=== PATIENT | female | born 1945 | race Caucasian/White ===

== ENCOUNTER 2023-11-03 06:15 | Day surgery (SDC) | payer MEDICARE, BC ==
[2023-11-02 09:19] LABS: BASOPHILS # (AUTO) 0.1 X10'3 (0-0.2); BASOPHILS % (AUTO) 1.5 % (0-1); EOSINOPHILS # (AUTO) 0.3 X10'3 (0-0.9); EOSINOPHILS % (AUTO) 4.9 % (0-6); HEMATOCRIT 46.6 % (35.0-45.0); HEMOGLOBIN 15.5 g/dl (12.0-16.0); LYMPHOCYTES # (AUTO) 1.6 X10'3 (1.1-4.8); LYMPHOCYTES % (AUTO) 25.8 % (21-51); MEAN CORPUSCULAR HGB CONC 33.3 g/dL (33.0-36.5); MEAN CORPUSCULAR VOLUME 90.1 FL (78-98); MEAN PLATELET VOLUME 8.6 FL (7.4-10.4); MONOCYTES # (AUTO) 0.5 X10'3 (0-0.9); MONOCYTES % (AUTO) 8.1 % (2-12); NEUTROPHILS # (AUTO) 3.8 X10'3 (1.8-7.7); NEUTROPHILS % (AUTO) 59.7 % (42-75); PLATELET COUNT 233 X10'3 (140-440); RED BLOOD COUNT 5.17 X10'6 (4.20-5.60); RED CELL DISTRIBUTION WIDTH 13.5 % (11.5-14.5); WHITE BLOOD COUNT 6.3 X10'3 (4.5-11.0)
[2023-11-02 09:52] LABS: ALBUMIN 3.6 G/DL (3.4-5.0); ANION GAP 7 (8-16); APTT 24 SECONDS (22-32); BLOOD UREA NITROGEN 31 MG/DL (7-18); BUN/CREATININE RATIO 23.5 (10.0-20.0); CALCIUM 9.8 MG/DL (8.5-10.1); CHLORIDE 103 MMOL/L (99-107); CREATININE 1.32 MG/DL (0.40-0.90); GLUCOSE 98 MG/DL (70-104); POTASSIUM 4.7 MMOL/L (3.5-5.1); PROTHROMBIN TIME 10.3 SECONDS (9.0-12.0); SODIUM 140 MMOL/L (135-145); TOTAL CARBON DIOXIDE 30.2 MMOL/L (24-32); eGFR 39 ML/MIN
[~2023-11-03] VITALS: Ht 162.6 cm; Wt 81.4 kg
[2023-11-03] VITALS (19 sets, daily range): BP systolic 127–162; BP diastolic 70–98; PULSE 59–64; RESP 13–21; TEMP 97.2; O2SAT 93–99
[~2023-11-03 06:15] MED LIST: AMLO5TAB16 PO; BIOT1CAP3 PO; CELE-127 PO; CIDE300T3 PO; FLUO40CA PO; LISI40TA13 PO; MULT-1085 PO; PRAM0.5T12 PO; PRE5T PO; ROSU5TAB43 PO; [UNRECOGNIZED DRUG - OTHER] INH; cefazolin 2gm/D5W 100mL 100 ML IV ONE; mag PO
[2023-11-03] MEDS ORDERED: ASPI-1264 PO (06:37)
[2023-11-03] MEDS ORDERED: CARV3.123 PO (06:38)
[2023-11-03] MEDS ORDERED: SPIR25TA5 PO (06:38)
[2023-11-03] MEDS ORDERED: SACU1TAB7 PO (06:39)
[2023-11-03] MEDS ORDERED: PANT40TA54 PO (06:39)
[2023-11-03] MEDS ORDERED: DAPA10TA PO (06:40)
[2023-11-03] MEDS ORDERED: normal saline 1,000 ML IV SCH (06:45)
[2023-11-03] MEDS ORDERED: LIDOcaine 1% W/epiNEPHrine 1:100,000 20ml vial ONE ×2 (07:29→08:51)
[2023-11-03] MEDS ORDERED: ceFAZolin 1000mg inj ONE (07:29)
[2023-11-03] MEDS ORDERED: fentaNYL/PF 50MCG/1 ML 2ML syringe ONE ×2 (07:29→09:20)
[2023-11-03] MEDS ORDERED: midazolam 1 mg/ML 2ml injection ONE (07:29)
[2023-11-03] MEDS ORDERED: diphenhydrAMINE 50 mg/ml inj ONE (09:13)
[2023-11-03] MEDS ORDERED: HYDROcodone/acetaminophen 5mg/325mg tablet PO PRN (10:05)
[2023-11-03] MEDS ORDERED: HYDROcodone/acetaminophen 10/325mg tab PO PRN (10:05)
[2023-11-03] MEDS: vancomycin/NS 1 GM ADD-VANTAGE 250 ML X 1 DOSE IV ONE (11:20)
== END 2023-11-03 16:00 | disposition home or self-care (01) ==
LOC: SSTAY O 06:15
PROVIDERS: ATTEND Internal Medicine Cardiovascular Disease
DX: I49.5 Sick sinus syndrome (principal); I13.0 Hypertensive heart and chronic kidney disease with heart failure and stage 1 through stage 4 chronic kidney disease, or unspecified chronic kidney disease; N18.30 Chronic kidney disease, stage 3 unspecified; I50.22 Chronic systolic (congestive) heart failure; I25.119 Atherosclerotic heart disease of native coronary artery with unspecified angina pectoris; I48.91 Unspecified atrial fibrillation; E78.5 Hyperlipidemia, unspecified; J44.9 Chronic obstructive pulmonary disease, unspecified; G47.30 Sleep apnea, unspecified; Z79.01 Long term (current) use of anticoagulants; Z79.82 Long term (current) use of aspirin; Z79.899 Other long term (current) drug therapy; Z96.651 Presence of right artificial knee joint; Z98.890 Other specified postprocedural states
CPT/HCPCS: 33216; 33235; 36415; 71046; 80048; 85025; 85610; 85730; 93005; 99152; 99153; A4565; A6258; A6402; C1898; J0690; J1200; J2250; J3010; J3370; J3490; J7030; Z7610; 33215; A6449

== ENCOUNTER 2025-01-18 13:05 | Outpatient (CLI) | payer MEDICARE, BC ==
[~2025-01-18] VITALS: Ht 161.3 cm; Wt 93.9 kg
[~2025-01-18 13:05] MED LIST changes: -AMLO5TAB16 PO; +ASPI-1264 PO; -BIOT1CAP3 PO; +CARV3.123 PO; -CELE-127 PO; -CIDE300T3 PO; +DAPA10TA PO; -LISI40TA13 PO; -MULT-1085 PO; +PANT40TA54 PO; -PRE5T PO; -ROSU5TAB43 PO; +ROSU5TAB51 PO; +SACU1TAB7 PO; +SPIR25TA5 PO; -[UNRECOGNIZED DRUG - OTHER] INH; -cefazolin 2gm/D5W 100mL 100 ML IV ONE; -mag PO
[2025-01-18 13:54] LABS: ABG BASE EXCESS 0.1 mmol/L (-2.0-3.0); ABG HCO3 23.6 mmol/L (21.0-28.0); ABG OXYGEN SATURATION 96.6 % (94.0-98.0); ABG PCO2 (T) 35.2 mmHg (32.0-45.0); ABG PH (T) 7.445 (7.350-7.450); ABG PO2 (T) 84.3 mmHg (83.0-108.0); ALLEN'S TEST POSITIVE; FCOHb 0.5 % (0.5-1.5); FHHb 3.4 % (0.0-5.0); FIO2 21.0 mmHg/%; FMetHb 0.3 % (0.0-1.5); FO2Hb 95.8 % (94.0-98.0); MODE ROOM AIR; PATIENT TEMPERATURE 37.0; TOTAL HEMOGLOBIN 14.5 G/dl (12.0-16.0)
[2025-01-18] MEDS: albuterol 2.5 MG/3 ML nebule NEB ONE (14:19)
[2025-01-18 14:21] VITALS: PULSE 69; RESP 15; O2SAT 96
[2025-01-18 14:31] VITALS: PULSE 60; RESP 16
--- NOTE | 2025-01-18 15:48 | RADIOLOGY REPORT ---
DI CHEST,TWO VIEWS CLINICAL HISTORY: COPD, DYSPNEA COMPARISON: DI CHEST,TWO VIEWS on DOS: 11/03/23 TECHNIQUE: Frontal and lateral view of the chest was obtained FINDINGS: Lines and Tubes: None Lungs: No focal consolidation. Pleura: No effusion. No pneumothorax. Cardiomediastinal contours: Unremarkable. Left-sided approach dual lead pacemaker terminating within right atrium and right ventricle. Bones: No acute osseous abnormality. 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 IMPRESSION: No acute cardiopulmonary disease.
--- NOTE | 2025-01-18 17:10 | PROCEDURE NOTE - Respiratory ---
Procedure Note-Respiratory Providers to CC Copies To 1: LORI COTTON FORECLOSURE SPECIALIST; COREY JOYCE MD Procedure Name: This is a complete pulmonary function study dated January 18, 2025. Hemoglobin measurement was done as part of the study. There was also a room air blood gas obtained from this patient on the same date. Spirometry measurements: There is mild reduction in the forced vital capacity. The FEV1 shows more severe reduction. The FEV1 ratio is also severely reduced. All of the measured flow rates show significant reduction. After inhaled bronchodilator was administered the FEV1 and the flow rates show slight improvement. Lung volume measurements: The total lung capacity and the functional residual capacity are both normal. Lung diffusion measurement: The DLCO measurement is significantly reduced. It is noted that both the KVO measurement as well as the alveolar volume measurements are both reduced. The hemoglobin measurement is in the normal range. Airway resistance measurement: The airway resistance is elevated. Conclusion: This study shows severe abnormality. There is evidence for obstructive ventilatory defect in the severe category. The patient shows slight reversibility using inhaled bronchodilator. The lung diffusion capacity is significantly depressed. These findings are consistent with the patient's diagnosis of severe COPD. This patient will benefit from regular use of bronchodilator medication. We have no previous studies for comparison. A blood gas was drawn from this patient while the patient was breathing ambient air. The blood pH is normal. The pCO2 is normal. The PO2 is normal at 84 mmHg. CORINNE MARTINEZ MD Jan 18, 2025 17:10
== END 2025-01-18 23:59 | disposition home or self-care (01) ==
LOC: RT 13:05
PROVIDERS: ATTEND Internal Medicine Critical Care Medicine
DX: J44.9 Chronic obstructive pulmonary disease, unspecified (principal); R06.00 Dyspnea, unspecified
CPT/HCPCS: 36600; 71046; 82803; 85018; 94060; 94727; 94729; 94760